=== PATIENT | female | born 1980 | race Caucasian/White ===

== ENCOUNTER → 2020-06-30 | Outpatient (CLI) | payer BC ==
[~2020-06-30] MED LIST: ARMOUR THYROID120 M1 PO; BIRTH CONTROL; CELEBREX100 MG/1 C; CELEXA 20 MG TA20 MG PO; FLEXERIL PO; KLONOPIN0.5 MG PO; NORCO 10-325 T1 EACH; TOPAMAX100 MG; ULTRAM50 MG
== END ==
LOC: M.PC 10:10
PROVIDERS: ATTEND Physical Medicine & Rehabilitation
DX: M75.82 Other shoulder lesions, left shoulder (principal); M79.18 Myalgia, other site; M54.2 Cervicalgia